=== PATIENT | male | born 1985 | race Two or more races ===

== ENCOUNTER 2018-08-09 11:28 | Emergency (ER) | payer OTHER ==
[~2018-08-09 11:28] MED LIST: CITA-156 PO; [UNRECOGNIZED DRUG - OTHER]
--- NOTE | 2018-08-09 11:30 | ER Report ---
History and Physical Time Seen By MD: 11:30 HPI/ROS CHIEF COMPLAINT: Back pain HISTORY OF PRESENT ILLNESS: This is a 33-year-old male who presents to the emergency department via EMS for back pain. Patient states that he was at work this morning went over to work on some rebar, felt a pop in his lower back had significant lower back pain with numbness and tingling shooting down to his toes. Patient's was placed on a backboard by EMS, was given 100 g of IV fentanyl and round. Patient states the lower back pain is resolving, patient arrives with numbness and tingling in his upper extremities and his lower extremities, patient was hyperventilating and appears to be having carpopedal spasms. Patient denies loss of bowel or bladder, he also states that he feels he be able urinate if he had to. Denying saddle anesthesia. No recent fevers or chills. No previous injuries. No chest pain or shortness of breath. No nausea or vomiting. REVIEW OF SYSTEMS: Constitutional: No fever, no chills. Eyes: No discharge. ENT: No sore throat. Cardiovascular: No chest pain, no palpitations. Respiratory: No cough, no shortness of breath. Gastrointestinal: No abdominal pain, no vomiting. Genitourinary: No hematuria. Musculoskeletal: As above. Skin: No rashes. Neurological: As above. Allergies: Coded Allergies: No Known Allergies (Verified Allergy, Mild, 08/09/18) Home Meds Active Scripts Diclofenac Sodium (DICLOFENAC SODIUM) 75 Mg Tablet.dr, 75 MG PO BID, #20 TAB 0 Refills Prov:ANALIA KHOURY MEDICAL TERMINOLOGIST-BC 08/09/18 Diazepam (VALIUM) 5 Mg Tablet, 5 MG PO 2-3XD, #15 TAB 0 Refills Prov:ANALIA KHOURY MEDICAL TERMINOLOGIST-BC 08/09/18 Past Medical/Surgical History The patient has a past medical and surgical history of ulcer, arthritis, back pain, ruptured eardrums. Reviewed Nurses Notes: Yes Hx Smoking: No Hx Substance Use Disorder: Yes Hx Alcohol Use: Yes Constitutional Vital Sign - Last 24 Hours 08/09/18 08/09/18 08/09/18 08/09/18 11:28 11:34 11:35 11:58 Temp 97.4 Pulse 68 80 67 Resp 12 21 B/P (MAP) 137/69 137/69 (91) Pulse Ox 100 91 O2 Delivery Room Air Room Air 08/09/18 08/09/18 08/09/18 08/09/18 12:00 12:28 12:30 12:35 Pulse 73 59 Resp 16 11 B/P (MAP) 133/68 (89) 114/73 (87) Pulse Ox 92 95 O2 Delivery Room Air Room Air 08/09/18 08/09/18 08/09/18 08/09/18 13:00 13:05 13:10 13:30 Pulse 66 67 Resp 9 12 B/P (MAP) 129/82 (98) 120/72 (88) Pulse Ox 93 94 O2 Delivery Room Air Room Air 08/09/18 08/09/18 08/09/18 13:40 14:00 14:10 Pulse 69 66 Resp 12 22 B/P (MAP) 121/75 (90) Pulse Ox 95 95 O2 Delivery Room Air Room Air Physical Exam General Appearance: The patient is alert, has no immediate need for airway protection and no signs of toxicity. Eyes: Pupils equal and round no pallor or injection. ENT, Mouth: Mucous membranes are moist. Respiratory: There are no retractions, lungs are clear to auscultation. Cardiovascular: Regular rate and rhythm. Gastrointestinal: Abdomen is soft and non tender, no masses, bowel sounds normal. Neurological: Alert and oriented 4. Moving all extremities. Following all commands. No focal neuro deficits. Cranial nerve II through XII intact. CMS intact bilaterally distal to the lumbar region. No saddle anesthesia, +rectal tone. Very light numbness to the medial side of the great toes bilaterally, approximately dime-sized. Skin: Warm and dry, no rashes. Musculoskeletal: Neck is supple non tender. No tenderness to the thoracic or lumbar spine. No step-offs, bruising or obvious deformities. Extremities are nontender, nonswollen and have full range of motion. DIFFERENTIAL DIAGNOSIS: After history and physical exam differential diagnosis was considered for back pain including but not limited to muscular pain, herniated disc, spine fracture, intra-abdominal causes and urinary tract infection. Medical Decision Making EKG/Imaging Imaging Location: [facility] Patient: Olga Gusman : 1985 Visit/Account:[id number] Date of Sevice: 08/09/2018 EXAMINATION: Lumbar Spine 5 views HISTORY: Back pain. COMPARISON: None. FINDINGS: There are 5 lumbar-type vertebral segments. Normal alignment along the lumbar spine. There is slight anterior wedging of L1, of indeterminate chronicity. Vertebral body height is otherwise maintained. Disc spaces are preserved. Posterior elements appear radiographically intact. No evidence of a pars defect on oblique views. Normal mineralization. IMPRESSION: 1. Slight anterior wedging of L1, of indeterminate chronicity. 2. Otherwise unremarkable lumbar spine series. Report Dictated By: Elton Saini MD at 08/09/2018 2:07 PM Report E-Signed By: Elton Saini MD at 08/09/2018 2:09 PM WSN:[id number] ED Course/Re-evaluation ED Course The patient was admitted to room. A history and physical were obtained. Differential diagnoses were considered. The IV that was started initially was removed the patient had significant pain with the IV site. Patient was given 5 mg IM Valium with moderate relief, patient was given another dose of 5 mg IM Valium with 60 mg IM Toradol. No acute findings identified on lumbar x-rays. I did ask when the patient this is likely lumbar strain, will likely resolve, take the next few days off of work try conservative treatment with a prescription for Valium and diclofenac, follow-up with your primary care provider, if no improvement follow [facility]. I did recommend when returning to work light duty, if develops any other pain. Immediately. I also recommended physical therapy, patient was sent home with a prescription for PT, a work release and the instructions. Patient was able to urinate. The patient has no other questions or concerns at this time and was assisted into a wheelchair and discharged home. Decision to Disposition Date: Aug 09, 2018 Decision to Disposition Time: 14:46 Depart Departure Latest Vital Signs Vital Signs Date Time Temp Pulse Resp B/P (MAP) Pulse Ox O2 Delivery O2 Flow Rate FiO2 08/09/18 14:10 66 22 95 Room Air 08/09/18 14:00 121/75 (90) 08/09/18 11:34 97.4 Impression: Primary Impression: Lumbar spine strain Condition: Improved Disposition: HOME OR SELF-CARE [facility] New Scripts Diclofenac Sodium (DICLOFENAC SODIUM) 75 Mg Tablet.dr 75 MG PO BID, #20 TAB 0 Refills Prov: ANALIA KHOURY MEDICAL TERMINOLOGIST- 08/09/18 Diazepam (VALIUM) 5 Mg Tablet 5 MG PO 2-3XD, #15 TAB 0 Refills Prov: ANALIA KHOURY MEDICAL TERMINOLOGIST- 08/09/18 Patient Instructions: Low Back Strain (ED) Additional Instructions: You have a lumbar strain. I would recommend following up with physical therapy for treatment of you lumbar strain. Take the Valium as needed for severe muscle spasms. Take the Diclofenac for back pain, do not take ibuprofen if taking Diclofenac too. Take 1000mg of Acetaminophen too as needed every 8 hours. Off work for at least 3 days, slowly progress into your regular routine, if you develop any pain, then stop. Problem Qualifiers Primary Impression: Lumbar spine strain Encounter type: initial encounter Qualified Codes: S39.012A - Strain of muscle, fascia and tendon of lower back, initial encounter ANALIA KHOURY [facility]- Aug 09, 2018 11:30
[2018-08-09] MEDS ORDERED: DIAZEPAM 50 MG/10 ML MDV IM ONE ×2 (12:35→14:35)
[2018-08-09] MEDS ORDERED: CYCL10TA29 PO (13:35)
[2018-08-09] MEDS ORDERED: DIA5 PO (13:35)
[2018-08-09] MEDS ORDERED: DICL-195 PO (13:41)
[2018-08-09 14:00] VITALS: BP 121/75
--- NOTE | 2018-08-09 14:13 | RADIOLOGY IMAGING REPORT ---
FACILITY: [facility] PATIENT NAME: Olga Gusman : 1985 MR: [id number] V: [id number] EXAM DATE: ORDERING PHYSICIAN: ANALIA KHOURY TECHNOLOGIST: Location: [facility] Patient: Olga Gusman : 1985 Visit/Account:[id number] Date of Sevice: 08/09/2018 EXAMINATION: Lumbar Spine 5 views HISTORY: Back pain. COMPARISON: None. FINDINGS: There are 5 lumbar-type vertebral segments. Normal alignment along the lumbar spine. There is slight anterior wedging of L1, of indeterminate chronicity. Vertebral body height is otherwi se maintained. Disc spaces are preserved. Posterior elements appear radiographically intact. No evide nce of a pars defect on oblique views. Normal mineralization. IMPRESSION: 1. Slight anterior wedging of L1, of indeterminate chronicity. 2. Otherwise unremarkable lumbar spine series. Report Dictated By: Elton Saini MD at 08/09/2018 2:07 PM Report E-Signed By: Elton Saini MD at 08/09/2018 2:09 PM WSN:[id number]
[2018-08-09] MEDS ORDERED: KETOROLAC 60 MG/2 ML VIAL IM ONE (14:35)
== END 2018-08-09 15:01 | disposition home or self-care (01) ==
LOC: ER 11:34
DX: R20.2 Paresthesia of skin (principal); S39.012A Strain of muscle, fascia and tendon of lower back, initial encounter
CPT/HCPCS: 72120; 96372; 99283; J1885; J3360

== ENCOUNTER 2018-08-16 00:58 | Emergency (ER) | payer OTHER ==
[~2018-08-16 00:58] MED LIST changes: +CYCL10TA29 PO; +DIA5 PO; +DICL-195 PO
--- NOTE | 2018-08-16 01:04 | ER Report ---
History and Physical Time Seen By MD: 00:58 HPI/ROS CHIEF COMPLAINT: Snf clearance, alcohol intoxication HISTORY OF PRESENT ILLNESS: 33-year-old male brought in by police for shelter clearance. Patient voices no complaints. Patient denies any injuries. There is a small abrasion to the right lateral aspect of his eyebrow. Patient won't state whether his tetanus shots up-to-date or not. Patient will not say whether his tetanus status is up-to-date. REVIEW OF SYSTEMS: Respiratory: No cough, no dyspnea. Cardiovascular: No chest pain, no palpitations. Gastrointestinal: No vomiting, no abdominal pain. Musculoskeletal: No back pain. Allergies: Coded Allergies: No Known Allergies (Verified Allergy, Mild, 08/09/18) Home Meds Active Scripts Diclofenac Sodium (DICLOFENAC SODIUM) 75 Mg Tablet.dr, 75 MG PO BID, #20 TAB 0 Refills Prov:ANALIA KHOURY [facility] 08/09/18 Diazepam (VALIUM) 5 Mg Tablet, 5 MG PO 2-3XD, #15 TAB 0 Refills Prov:ANALIA KHOURY [facility] 08/09/18 Hx Smoking: No Hx Substance Use Disorder: Yes Hx Alcohol Use: Yes Physical Exam General Appearance: The patient is alert, has no immediate need for airway protection and no current signs of toxicity. Palpation of the head and neck reveal no tenderness or trauma HEENT: Pupils equal and round no injection. EOMI, there is a deep abrasion to the lateral aspect of the right eyebrow oropharynx without dental trauma Respiratory: Chest is non tender, lungs are clear to auscultation. Cardiac: regular rate and rhythm Gastrointestinal: Abdomen is soft and non tender, no masses, bowel sounds junaid l. Musculoskeletal: Neck: Neck is supple and non tender. Extremities have full range of motion and are non tender. Skin: No rashes or lesions. DIFFERENTIAL DIAGNOSIS: After history and physical exam differential diagnosis was considered for alcohol intoxication, shelter clearance, polysubstance abuse, abrasion, open wound, contusion Medical Decision Making ED Course/Re-evaluation ED Course Patient was admitted to an examination room. H&P was done. The differential diagnosis was considered. On clinical examination. Patient has no findings. He voices no complaints. He refuses all care. He will not reverify whether his tetanus is up-to-date. Decision to Disposition Date: Aug 16, 2018 Decision to Disposition Time: 01:01 Depart Departure Impression: Primary Impression: Medical clearance for incarceration Additional Impressions: Alcohol intoxication Abrasion of right eyebrow Condition: Improved Disposition: [facility] TO PRISON/CORRECTIONAL F Patient Instructions: Alcohol Intoxication (ED) Additional Instructions: Medical cleared for shelter admission Problem Qualifiers Additional Impressions: Alcohol intoxication Complication of substance-induced condition: uncomplicated Qualified Codes: F10.920 - Alcohol use, unspecified with intoxication, uncomplicated Abrasion of right eyebrow Encounter type: initial encounter Qualified Codes: S00.211A - Abrasion of right eyelid and periocular area, initial encounter DILAN GAVIN DO Aug 16, 2018 01:04
== END 2018-08-16 01:07 ==
LOC: ER 01:05
DX: F10.920 Alcohol use, unspecified with intoxication, uncomplicated (principal); S00.211A Abrasion of right eyelid and periocular area, initial encounter
CPT/HCPCS: 99281